=== PATIENT | female | born 1985 | race Caucasian/White ===

== ENCOUNTER 2017-03-10 17:30 | Emergency (ER) | payer OTHER ==
[~2017-03-10] VITALS: Ht 172.7 cm; Wt 86.2 kg
--- NOTE | 2017-03-10 18:00 | PHYS DOC ---
Past Medical History Past Medical History: No Pertinent History Past Surgical History: No Surgical History Alcohol Use: Occasionally Drug Use: None Adult General Chief Complaint Chief Complaint: Palpitations HPI HPI Patient is a 31 year old female who presents with R to arrival onset of lightheadedness weakness and palpitations that she felt her heart was beating fast those symptoms have subsided and she feels improved. She denies any headache but did have some brief blurry vision and some abnormal sensation in her right arm that is also improved. No previous medical problems no cardiac history. Smokes on occasion, no drug use. Grandmother had heart troubles. No shortness of breath. No leg pain or swelling. Review of Systems Review of Systems Constitutional: Denies fever or chills [] Eyes: Denies change in visual acuity, redness, or eye pain [] HENT: Denies nasal congestion or sore throat [] Respiratory: Denies cough or shortness of breath [] Cardiovascular: No additional information not addressed in HPI [] GI: Denies abdominal pain, nausea, vomiting, bloody stools or diarrhea [] : Denies dysuria or hematuria [] Musculoskeletal: Denies back pain or joint pain [] Integument: Denies rash or skin lesions [] Neurologic: Denies headache, focal weakness or sensory changes [] Endocrine: Denies polyuria or polydipsia [] Current Medications Current Medications Current Medications Medications (Trade) Dose Ordered Sig/Nidhi Start Time Stop Time Status Last Admin Dose Admin Info (Do NOT chart on this entry -- for MONITORING) 1 each PRN DAILY PRN 03/10/17 20:00 03/12/17 19:59 Iohexol (Omnipaque 300 Mg/ml) 75 ml 1X ONCE 03/10/17 20:00 03/10/17 20:01 DC 03/10/17 20:00 75 ML Allergies Allergies Allergies Coded Allergies Type Severity Reaction Last Updated Verified sulfur dioxide Allergy Intermediate RASH 05/15/16 Yes Physical Exam Physical Exam Constitutional: Well developed, well nourished, no acute distress, non-toxic appearance. [] HENT: Normocephalic, atraumatic, bilateral external ears normal, oropharynx moist, no oral exudates, nose normal. [] Eyes: PERRLA, EOMI, conjunctiva normal, no discharge. [] Neck: Normal range of motion, no tenderness, supple, no stridor. [] Cardiovascular:Heart rate regular rhythm, no murmur [] Lungs & Thorax: Bilateral breath sounds clear to auscultation [] Abdomen: Bowel sounds normal, soft, no tenderness, no masses, no pulsatile masses. [] Skin: Warm, dry, no erythema, no rash. [] Back: No tenderness, no CVA tenderness. [] Extremities: No tenderness, no cyanosis, no clubbing, ROM intact, no edema. [] Neurologic: Alert and oriented X 3, normal motor function, normal sensory function, no focal deficits noted. [] Psychologic: Affect normal, judgement normal, mood normal. [] Current Patient Data Vital Signs Vital Signs Date Time Temp Pulse Resp B/P (MAP) Pulse Ox O2 Delivery O2 Flow Rate FiO2 03/10/17 18:42 84 20 104/74 (84) 98 Room Air 03/10/17 17:40 98.2 98.2 Lab Values Laboratory Tests Test 03/10/17 17:17 03/10/17 19:10 POC Urine HCG, Qualitative Hcg negative (Negative) White Blood Count 10.4 x10^3/uL (4.0-11.0) Red Blood Count 4.28 x10^6/uL (3.50-5.40) Hemoglobin 12.9 g/dL (12.0-15.5) Hematocrit 38.1 % (36.0-47.0) Mean Corpuscular Volume 89 fL (79-100) Mean Corpuscular Hemoglobin 30 pg (25-35) Mean Corpuscular Hemoglobin Concent 34 g/dL (31-37) Red Cell Distribution Width 13.4 % (11.5-14.5) Platelet Count 244 x10^3/uL (140-400) Neutrophils (%) (Auto) 63 % (31-73) Lymphocytes (%) (Auto) 28 % (24-48) Monocytes (%) (Auto) 8 % (0-9) Eosinophils (%) (Auto) 1 % (0-3) Basophils (%) (Auto) 1 % (0-3) Neutrophils # (Auto) 6.5 x10^3uL (1.8-7.7) Lymphocytes # (Auto) 2.9 x10^3/uL (1.0-4.8) Monocytes # (Auto) 0.8 x10^3/uL (0.0-1.1) Eosinophils # (Auto) 0.1 x10^3/uL (0.0-0.7) Basophils # (Auto) 0.1 x10^3/uL (0.0-0.2) D-Dimer (Janel) 0.72 ug/mlFEU (0.00-0.50) H Sodium Level 139 mmol/L (136-145) Potassium Level 4.3 mmol/L (3.5-5.1) Chloride Level 103 mmol/L (98-107) Carbon Dioxide Level 29 mmol/L (21-32) Anion Gap 7 (6-14) Blood Urea Nitrogen 12 mg/dL (7-20) Creatinine 0.7 mg/dL (0.6-1.0) Estimated GFR (Cockcroft-Gault) 98.3 BUN/Creatinine Ratio 17 (6-20) Glucose Level 80 mg/dL (70-99) Calcium Level 8.8 mg/dL (8.5-10.1) Total Bilirubin 0.2 mg/dL (0.2-1.0) Aspartate Amino Transferase (AST) 18 U/L (15-37) Alanine Aminotransferase (ALT) 17 U/L (14-59) Alkaline Phosphatase 78 U/L (46-116) Troponin I Quantitative < 0.017 ng/mL (0.000-0.055) Total Protein 7.2 g/dL (6.4-8.2) Albumin 3.6 g/dL (3.4-5.0) Albumin/Globulin Ratio 1.0 (1.0-1.7) Laboratory Tests 03/10/17 19:10 Laboratory Tests 03/10/17 19:10 EKG EKG EKG normal sinus rhythm rate of 66 no STEMI QTC normal [] Radiology/Procedures Radiology/Procedures Chest x-ray [negative for acute disease process my interpretation and review the films] EtOH chest no PE; 2.3 cm left adrenal gland mass. Course & Med Decision Making Course & Med Decision Making Pertinent Labs and Imaging studies reviewed. (See chart for details) Plan check EKG chest x-ray some basic labs including d-dimer, exclude and likely will dismissed for follow-up with her PCP consideration for Holter monitor or event monitor. CTA chest show no evidence of PE or dissection however there was an incidental finding of a 2.3 cm mass in the left adrenal gland. These test results have been communicated with the patient and her mother and they understand the great importance of getting follow-up for this incidental finding.] Dragon Disclaimer Dragon Disclaimer This electronic medical record was generated, in whole or in part, using a voice recognition dictation system. Departure Departure Impression: Primary Impression: Heart palpitations Additional Impression: Mass of left adrenal gland Disposition: HOME, SELF-CARE Condition: IMPROVED Referrals: NON,STAFF (PCP) Patient Instructions: Palpitations, [id number] Additional Instructions: Please see your primary care physician for consideration of Holter monitor or event monitor for evaluation of the palpitations and follow-up for the adrenal gland mass seen on the left for further testing and evaluation and referral. Problem Qualifiers CRISTOFER VICTORIA MD Mar 10, 2017 18:00
[2017-03-10 19:28] LABS: BASO # 0.1 x10^3/uL (0.0-0.2); BASO % 1 % (0-3); EOS % 1 % (0-3); HEMATOCRIT 38.1 % (36.0-47.0); HEMOGLOBIN 12.9 g/dL (12.0-15.5); LYMPH # 2.9 x10^3/uL (1.0-4.8); LYMPH % 28 % (24-48); MEAN CORPUSCULAR HEMOGLOBIN 30 pg (25-35); MEAN CORPUSCULAR HGB CONC 34 g/dL (31-37); MEAN CORPUSCULAR VOLUME 89 fL (79-100); MONO % 8 % (0-9); NEUT % 63 % (31-73); PLATELET COUNT 244 x10^3/uL (140-400); RED BLOOD COUNT 4.28 x10^6/uL (3.50-5.40); RED CELL DISTRIBUTION WIDTH 13.4 % (11.5-14.5); WHITE BLOOD COUNT 10.4 x10^3/uL (4.0-11.0)
[2017-03-10 19:30] LABS: CALCIUM 8.8 mg/dL (8.5-10.1); CREATININE 0.7 mg/dL (0.6-1.0); GFR 98.3; POTASSIUM 4.3 mmol/L (3.5-5.1)
[2017-03-10 19:36] LABS: ALBUMIN 3.6 g/dL (3.4-5.0); TOTAL BILIRUBIN 0.2 mg/dL (0.2-1.0); TOTAL PROTEIN 7.2 g/dL (6.4-8.2)
[2017-03-10] MEDS ORDERED: IOHEXOL 300 MG/ML 75 ML VIAL IV ONE (20:00)
[2017-03-10] MEDS ORDERED: CONTRAST GIVEN MC PRN (20:00)
--- NOTE | 2017-03-10 21:02 | RAD ---
CT Angio chest Indication: chest pain, palpitations, elevated d dimer, [id number] 75ml,no priors Technique: Multiple contiguous axial images were obtained through the chest after administration of intravenous iodinated contrast. Coronal, sagittal, and 3-D MIP reformations were created. PQRS STATEMENT: One or more of the following in the visualized dose reduction techniques were utilized for this study: 1. Automatic exposure control, 2. Adjustment of the mA and/or kV according to patient size, 3. Use of iterative reconstruction technique Findings: There is no central filling defect within the pulmonary arteries to suggest presence of pulmonary embolism. Heart size is normal. There is no pericardial effusion. The thoracic aorta is normal in caliber with no evidence for dissection. No thoracic adenopathy is identified. The lungs are clear with no evidence for pleural effusion or infiltrate. No destructive osseous lesion is identified. Limited subdiaphragmatic evaluation demonstrates a 2.3 cm left adrenal mass. Impression: Negative for pulmonary embolism. 2.3 cm left adrenal mass. Adrenal protocol MRI is recommended. Electronically signed by: Chapito López MD (03/10/2017 8:58 PM) [facility]
[2017-03-10 21:30] VITALS: BP 102/63
--- NOTE | 2017-03-11 07:44 | RAD ---
Chest radiograph 03/10/2017 at 1823 hours Indication: Chest pain and palpitations Comparison: None available Technique: Single frontal portable upright view of the chest is provided. Findings: Cardiomediastinal silhouette is within normal limits. No pleural effusions, pulmonary vascular congestion or pneumothorax. The lungs are clear. Osseous structures are normal. Impression: No acute cardiopulmonary process.
== END 2017-03-10 21:55 | disposition home or self-care (01) ==
LOC: ER 17:30
DX: R00.2 Palpitations (principal); E27.8 Other specified disorders of adrenal gland; R42 Dizziness and giddiness; R53.1 Weakness; Z88.2 Allergy status to sulfonamides
CPT/HCPCS: 36415; 71010; 71275; 80053; 81025; 84484; 85027; 85379; 99285; Q9967